=== PATIENT | female | born 1970 | race African-American/Black ===

== ENCOUNTER → 2017-05-23 | Outpatient (CLI) | payer OTHER ==
--- NOTE | 2017-05-23 17:14 | RAD ---
DATE: 05/23/2017 EXAM: DIGITAL SCREEN BILAT W/CAD HISTORY: 46-year-old female for routine screening. COMPARISON: Prior mammograms from 2016, 2013 This study was interpreted with the benefit of Computerized Aided Detection (CAD). FINDINGS: Breast Density: SCATTERED The breast parenchyma shows scattered fibroglandular densities. Breast parenchyma level B. No suspicious calcifications, spiculated mass or architectural distortion. Stable benign calcifications in bilateral breasts. IMPRESSION: No suspicious findings. BI-RADS CATEGORY: 2 BENIGN FINDING(S) RECOMMENDED FOLLOW-UP: 12M 12 MONTH FOLLOW-UP PQRS compliance statement: Patient information was entered into a reminder system with a target due date 05/23/2018 for the next mammogram. Mammography is a sensitive method for finding small breast cancers, but it does not detect them all and is not a substitute for careful clinical examination. A negative mammogram does not negate a clinically suspicious finding and should not result in delay in biopsying a clinically suspicious abnormality. "Our facility is accredited by the [employer] Mammography Program."
== END | disposition home or self-care (01) ==
LOC: MAMMO 15:14
PROVIDERS: ATTEND Family Medicine
DX: Z12.31 Encounter for screening mammogram for malignant neoplasm of breast (principal)
CPT/HCPCS: G0202; 77067

== ENCOUNTER 2019-02-11 16:16 | Emergency (ER) | payer OTHER ==
[~2019-02-11] VITALS: Ht 162.6 cm; Wt 80.9 kg
[2019-02-11 16:50] VITALS: BP 170/82
[2019-02-11] MEDS ORDERED: IBUPROFEN 400 MG TABLET. PO ONE (17:00)
[2019-02-11] MEDS ORDERED: LIDOCAINE 1% PF 2 ML VIAL. INJ ONE (18:00)
--- NOTE | 2019-02-11 18:51 | PHYS DOC ---
Past Medical History Past Medical History: No Pertinent History (GILBERTO NGUYEN APRN) Past Surgical History: Cholecystectomy, , Other Additional Past Surgical Histo: LEEP (GILBERTO NGUYEN APRN) Alcohol Use: None Drug Use: None (GILBERTO NGUYEN APRN) Adult General Chief Complaint Chief Complaint: FINGER INJURY HPI HPI 48-year-old female presents to ER via POV for complaints of mechanical fall while at work she states she slipped causing herself to fall forward and since has had right forearm pain and bruising and left middle finger deformity/pain. She denies any other injuries. She denies striking her head. She denies any [id number] medications prior to arrival. (GILBERTO NGUYEN APRN) Review of Systems Review of Systems Constitutional: Denies fatigue Respiratory: Denies cough or shortness of breath [] Cardiovascular: No additional information not addressed in HPI [] GI: Denies abdominal pain, nausea, vomiting. Denies incontinence : Denies urinary sxs Musculoskeletal: Denies back/neck pain. Reports rt forearm and lt middle finger pain- w/deformity lt middle finger Integument: Denies abrasions/open wounds Neurologic: Denies focal weakness or sensory changes [] All other systems were reviewed and found to be within normal limits, except as documented in this note. (GILBERTO NGUYEN APRN) Current Medications Current Medications Current Medications Medications (Trade) Dose Ordered Sig/Kayla Start Time Stop Time Status Last Admin Dose Admin Ibuprofen (Motrin) 600 mg 1X ONCE 02/11/19 17:00 02/11/19 17:01 DC 02/11/19 17:13 600 MG Lidocaine HCl (Xylocaine-Mpf 1% 2ml Vial) 4 ml 1X ONCE 02/11/19 18:00 02/11/19 18:01 DC 02/11/19 18:29 4 ML (SUNIL STREET MD) Allergies Allergies Allergies Coded Allergies Type Severity Reaction Last Updated Verified No Known Drug Allergies 02/11/19 No (SUNIL STREET MD) Physical Exam Physical Exam Constitutional: Well developed, well nourished, no acute distress, non-toxic appearance. [] HENT: Normocephalic, atraumatic, oropharynx moist, nose normal. [] Eyes: Pupils equal, conjunctiva normal, no discharge. [] Neck: Normal range of motion, no tenderness mid line cspine, supple, no stridor. [] Cardiovascular:Heart rate regular rhythm, no murmur [] Lungs & Thorax: Bilateral breath sounds clear to auscultation- resp. equal/nonlabored Abdomen: Bowel sounds normal, soft, no tenderness Skin: Warm, dry Back: No tenderness mid line spine, no CVA tenderness. [] Extremities: Pelvis stable/nontender. No cyanosis, no clubbing, 2+ bilat. radial. Rt posterior mid forearm bruising/swelling- tender to palp. No deformity. Full ROM in rt upper extremity. Lt middle finger mid joint deformity w/swelling at joint. No open wounds. With gentle traction at mid joint felt reduction and pt was able to perform ROM. Lt shoulder/elbow/wrist/other fingers NL exam. ROM intact bilat LE, no edema. [] Neurologic: Alert and oriented X 3, normal motor function, normal sensory function, no focal deficits noted. [] Psychologic: Affect normal, judgement normal, mood normal. [] (GILBERTO NGUYEN APRN) Current Patient Data Vital Signs Vital Signs Date Time Temp Pulse Resp B/P (MAP) Pulse Ox O2 Delivery O2 Flow Rate FiO2 02/11/19 16:50 98.3 66 20 170/82 (111) 98 Room Air 98.3 (SUNIL STREET MD) EKG EKG [] (GILBERTO NGUYEN APRN) Radiology/Procedures Radiology/Procedures PROCEDURE: FOREARM RIGHT AP and lateral right forearm radiographs 02/11/2019 CLINICAL HISTORY: Injury to the right forearm. AP and lateral digital radiographs of the right forearm were obtained. No fracture or dislocation right radius or ulna is noted. No radiopaque foreign body is seen. IMPRESSION: No fracture or dislocation of the right forearm is seen. Electronically signed by: Zak Bee MD (02/11/2019 11:54 PM) [facility] (GILBERTO NGUYEN APRN) Course & Med Decision Making Course & Med Decision Making Pertinent Labs and Imaging studies reviewed. (See chart for details) During initial examination patient had deformity to left middle finger and with gentle pressure and traction felt reduction occur and patient had no deformity to left middle joint and left middle finger and patient reported pain had improved. During x-ray patient states when they had her bend her left middle finger she could feel dislocation again at the middle joint. And on reexamination patient does have deformity again-imaging also shows dislocation. Patient remains PMS intact. Will perform digital block. 1840: Digital block 1% lidocaine dorsal approach webbing of lateral proximal base of lt middle finger for reduction of lt middle joint. Again w/gentle pressure at mid joint lt middle finger felt reduction and pt had full ROM w/no deformity. Herbert tape was applied to left middle finger adjoined to left ring finger. Reduction x-ray was ordered. Patient tolerated procedure well and remained PMS intact in left upper extremity. Brisk capillary refill to all fingers. He shouldn't is denying any pain. X-ray was obtained and reviewed by Dr. Street. On imaging patient had tape removed and her fingers were apart and bent on imaging. On reevaluation patient states she began could feel dislocation of left mid joint left middle finger with range of motion. Again to normal pressure was applied to mid joint and a reduction could be felt with realignment in left middle finger. Herbert tape was applied as well as aluminum splint and discussed with patient that additional imaging would not be obtained as finger was reduced and there was no deformity. Patient was comfortable with this plan. Discussed need for follow-up with orthopedic doctor. Will provide referral information on discharge paperwork. Patient was advised to talk to her work place as accident had happened there to ensure who she should follow-up with.Education provided on signs and symptoms to return to ER. Discharge instructions were discussed. Rice acronym discussed. (GILBERTO NGUYEN APRN) Course & Med Decision Making Staff Physician Addendum: I was working in the ER during the course of this patient's visit. I was available for consultation as needed, but I was not directly involved in the care of this patient. (SUNIL STREET MD) Dragon Disclaimer Dragon Disclaimer This electronic medical record was generated, in whole or in part, using a voice recognition dictation system. (GILBERTO NGUYEN APRN) Departure Departure Impression: Primary Impression: Dislocated finger Disposition: 01 HOME, SELF-CARE Condition: STABLE Referrals: UNKNOWN PCP NAME (PCP) HUGO SMITH MD Patient Instructions: Closed Reduction for Metacarpal Fracture or Dislocation Additional Instructions: Tylenol and/or ibuprofen as needed for pain as directed on container. Follow-up with your work to find out who they want you to follow-up with for an orthopedic doctor. Herbert tape your left middle finger to one of your adjoining fingers for support and wear the aluminum splint for protection and additional support. GILBERTO NGUYEN APRN February 11, 2019 18:[address] MD February 18, 2019 06:58
--- NOTE | 2019-02-11 23:56 | RAD ---
Three-view left third finger radiographs 02/11/2019 CLINICAL HISTORY: Post reduction of a dislocation of the left third finger. A PA digital radiograph of the left hand was obtained. Oblique and lateral digital radiographs of the left third finger were obtained. Comparison study is dated earlier the same day at 1700 hours. Medial and posterior subluxation of the middle phalanx relative to the proximal phalanx at the PIP joint of the left third finger is again seen. This has not significantly changed since the previous examination. No fracture is noted. IMPRESSION: Persistent subluxation of the PIP joint of the left third finger. Electronically signed by: Zak Bee MD (02/11/2019 11:53 PM) [facility]
--- NOTE | 2019-02-11 23:57 | RAD ---
AP and lateral right forearm radiographs 02/11/2019 CLINICAL HISTORY: Injury to the right forearm. AP and lateral digital radiographs of the right forearm were obtained. No fracture or dislocation right radius or ulna is noted. No radiopaque foreign body is seen. IMPRESSION: No fracture or dislocation of the right forearm is seen. Electronically signed by: Zak Bee MD (02/11/2019 11:54 PM) [facility]
--- NOTE | 2019-02-12 00:02 | RAD ---
Three-view left third finger radiographs 02/11/2019 CLINICAL HISTORY: Injury to the left third finger. A PA digital radiograph of the left hand was obtained. Oblique and lateral digital radiographs of the left third finger were obtained. The middle phalanx of the left third finger is severely subluxed posteriorly and medially relative to the proximal phalanx of the PIP joint of the left third finger. No fracture is seen. IMPRESSION: Subluxation of the PIP joint of the left third finger. No fracture is seen. Electronically signed by: Zak Bee MD (02/11/2019 11:59 PM) [facility]
== END 2019-02-11 20:16 | disposition home or self-care (01) ==
LOC: ER 16:16
DX: S63.283A Dislocation of proximal interphalangeal joint of left middle finger, initial encounter (principal); S50.11XA Contusion of right forearm, initial encounter; W01.0XXA Fall on same level from slipping, tripping and stumbling without subsequent striking against object, initial encounter; Y93.89 Activity, other specified; Y92.69 Other specified industrial and construction area as the place of occurrence of the external cause; Y99.0 Civilian activity done for income or pay
CPT/HCPCS: 26770; 73090; 73140; 99284-25